=== PATIENT | male | born 1995 | race Caucasian/White ===

== ENCOUNTER 2016-04-13 14:47 | Emergency (ER) | payer BC ==
[2016-04-13 15:14] VITALS: BP 128/73
--- NOTE | 2016-04-13 15:24 | UC ---
Throat Pain/Nasal Martinez HPI - HPI Summary HPI Summary: complaint o sore throat and dx with mono 04/10/16 by PCP today his throat is feeling much worse- difficulty swallowing entire throat is painful intermittent fever taking ibuprofen 600 mg PO for pain and fever was using lidocaine for pain but used it up gargling with salt water works better for reducing pain gabbi abdominal and back pain - History of Current Complaint Chief Complaint: UC Stated Complaint: MONO RECHECK/THROAT Time Seen by Provider: 04/13/16 15:13 - Allergies/Home Medications Allergies/Adverse Reactions: Allergies Allergy/AdvReac Type Severity Reaction Status Date / Time Ampicillin Allergy Unknown UNK Verified 04/03/16 16:14 PMH/Surg Hx/FS Hx/Imm Hx Previously Healthy: No - mononucleoisis Respiratory History Of: Reports: Asthma - A YOUNGER CHILD - Surgical History Surgical History: Yes Surgery Procedure, Year, and Place: appy - Family History Known Family History: Positive: Hypertension Negative: Cardiac Disease, Diabetes Family History: NO FAM HX OF INTRACRANIAL ABNORMALITIES - Social History Occupation: Student Lives: With Family Alcohol Use: None Substance Use Type: None Smoking Status (MU): Never Smoked Tobacco Have You Smoked in the Last Year: No - Immunization History Most Recent Influenza Vaccination: none Vaccination Up to Date: Yes Review of Systems Constitutional: Fever Skin: Negative Eyes: Negative ENT: Sore Throat Respiratory: Negative Cardiovascular: Negative Gastrointestinal: Negative Genitourinary: Negative Motor: Negative Neurovascular: Negative Musculoskeletal: Negative Neurological: Negative Psychological: Negative All Other Systems Reviewed And Are Negative: Yes Physical Exam Triage Information Reviewed: Yes Appearance: Well-Nourished, Ill-Appearing Vital Signs: Initial Vital Signs Temp 98.6 F 04/13/16 15:09 Pulse 116 04/13/16 15:09 Resp 16 04/13/16 15:09 BP 128/73 04/13/16 15:09 Pulse Ox 99 04/13/16 15:09 Vital Signs Reviewed: Yes Eyes: Positive: Conjunctiva Clear ENT: Positive: Pharyngeal erythema, TMs normal, Tonsillar swelling, Tonsillar exudate. Negative: Nasal congestion, Nasal drainage Neck: Positive: No Lymphadenopathy Respiratory: Positive: Lungs clear, Normal breath sounds, No respiratory distress Cardiovascular: Positive: No Murmur, Tachycardia Abdomen Description: Positive: Nontender, Soft. Negative: CVA Tenderness (R), CVA Tenderness (L), Distended, Guarding Bowel Sounds: Positive: Present Musculoskeletal: Positive: No Edema Neurological: Positive: Alert Psychological Exam: Normal Skin Exam: Normal Throat Pain/Nasal Course/Dx - Differential Dx/Diagnosis Differential Diagnosis/HQI/PQRI: Mononucleosis Provider Diagnoses: mononucleosis - Physician Notification/Consults Discussed Patient Care With: Dr Martell Discharge - Discharge Plan Condition: Stable Disposition: HOME Prescriptions: PredNISOLone LIQ 5MG/ML* 60 mg PO DAILY #72 ml Patient Education Materials: Mononucleosis (ED) Referrals: Manuelito Kilgore DO [Primary Care Provider] - Additional Instructions: start prednisolone as directed tomorrow 04/14/15 continue to gargle wth saltwater 6x day and take ibuprofen for pain increase fluids and rest,drinking cold fluids and soft foods Please review your discharge instructions. If your symptoms do not improve please call your primary care provider or return to urgent care.
[2016-04-13] MEDS ORDERED: methylPREDNISolone ACETATE 40* 40 MG/ML 1 ML VIAL IM ONE (15:25)
== END 2016-04-13 16:04 | disposition home or self-care (01) ==
LOC: UCCORT 14:47
DX: B27.90 Infectious mononucleosis, unspecified without complication (principal); Z88.1 Allergy status to other antibiotic agents
CPT/HCPCS: 96372; 99212; G0463; J1030

== ENCOUNTER 2017-08-03 15:34 | Emergency (ER) | payer BC ==
[2017-08-03 17:41] VITALS: BP 146/85
--- NOTE | 2017-08-03 18:20 | UC ---
General HPI - HPI Summary HPI Summary: 22 yo gentleman c/o sinus congestion, sore throat, fever (yesterday). Mild cough, not severe. No rash. Mild "gurgly" stomach, no d/c. No rash. + yellow nasal / sinus driainage, thick. - History of Current Complaint Chief Complaint: UCGeneralIllness Stated Complaint: SINUS COMPLAINT,SORE THROAT Time Seen by Provider: 08/03/17 17:47 Hx Obtained From: Patient Pain Intensity: 7 - Allergy/Home Medications Allergies/Adverse Reactions: Allergies Allergy/AdvReac Type Severity Reaction Status Date / Time ampicillin Allergy Unknown Verified 08/03/17 17:41 Reaction Details PMH/Surg Hx/FS Hx/Imm Hx Previously Healthy: Yes - Surgical History Surgical History: Yes Surgery Procedure, Year, and Place: appy - Family History Known Family History: Positive: Hypertension Negative: Cardiac Disease, Diabetes Family History: NO FAM HX OF INTRACRANIAL ABNORMALITIES - Social History Occupation: Student Alcohol Use: None Substance Use Type: None Smoking Status (MU): Never Smoked Tobacco Have You Smoked in the Last Year: No - Immunization History Most Recent Influenza Vaccination: none Vaccination Up to Date: Yes Review of Systems Constitutional: Fever Skin: Negative Eyes: Negative ENT: Other - see hpi Respiratory: Other - see hpi Cardiovascular: Other - see hpi Gastrointestinal: Other - see hpi Motor: Negative Neurovascular: Negative Musculoskeletal: Negative Neurological: Negative Psychological: Negative Is Patient Immunocompromised?: No All Other Systems Reviewed And Are Negative: Yes Physical Exam Triage Information Reviewed: Yes Appearance: Well-Nourished - sitting up, conversing easily and appropriately Vital Signs: Initial Vital Signs Temp 100.8 F 08/03/17 17:36 Pulse 119 08/03/17 17:36 Resp 16 08/03/17 17:36 BP 146/85 08/03/17 17:36 Pulse Ox 100 08/03/17 17:36 Eye Exam: Normal ENT: Positive: Pharyngeal erythema - mild post phary redness. + sore on top of mouth (at soft palate). No leon exudate appreciated. Tongue ok. Airway patent., Nasal congestion, TM dull Neck exam: Normal Neck: Positive: Supple, Nontender, No Lymphadenopathy Respiratory Exam: Normal Respiratory: Positive: Chest non-tender, Lungs clear, Normal breath sounds, No respiratory distress, No accessory muscle use Cardiovascular Exam: Normal - HR a little elevated, c/w illness. Cardiovascular: Positive: No Murmur, Pulses Normal, Brisk Capillary Refill Abdominal Exam: Normal Abdomen Description: Positive: Nontender Musculoskeletal Exam: Normal - moves x 4 ext's, gait steady Neurological Exam: Normal - grossly nonfocal Psychological Exam: Normal - conversing easily and appropriately Skin Exam: Normal - no visible or reported rash Course/Dx - Course Course Of Treatment: RST negative. Likely viral, himanshu in light of sores on roof of mouth. However, probable secondary infection (sinus) consideration. D/w Kb coa / tx plan. He expresses understanding and agreement. Advised to drink lots of water, rest. Seek medical care if worse or new problems. Questions as posed answered to the best of my ability. - Differential Dx - Multi-Symptom Provider Diagnoses: Acute pharyngitis (see above). Sinusitis Discharge - Sign-Out/Discharge Documenting (check all that apply): Discharge/Admit/Transfer - Discharge Plan Condition: Stable Disposition: HOME Prescriptions: DOXYcycline CAP(*) [DOXYcycline 100MG CAP(*)] 100 mg PO BID #19 cap Patient Education Materials: Pharyngitis (ED), Sinusitis (ED) Forms: *School Release Referrals: Manuelito Kilgore DO [Primary Care Provider] - Additional Instructions: Suspicious of virus, ex hand foot mouth variant Strep test today negative. Please seek medical attention for worse or new problems in the meantime. - Billing Disposition and Condition Condition: STABLE Disposition: HOME
[2017-08-03] MEDS ORDERED: DOXYcycline CAP(*) 100 MG PO ONE (18:40)
== END 2017-08-03 18:55 | disposition home or self-care (01) ==
LOC: UCCORT 15:34
DX: J02.9 Acute pharyngitis, unspecified (principal); J32.9 Chronic sinusitis, unspecified; Z88.3 Allergy status to other anti-infective agents
CPT/HCPCS: 87651; 99212; A9270-GY; G0463